=== PATIENT | female | born 1995 | race Caucasian/White ===

== ENCOUNTER → 2019-02-28 13:57 | Outpatient (BNVA) | payer SELFPAY | PROVIDERS: Family Provider Registered Nurse; PCP Registered Nurse; Visit Provider Registered Nurse | DX: N92.6 Irregular menstruation, unspecified (principal); R11.2 Nausea with vomiting, unspecified | CPT/HCPCS: 81025 ==

== ENCOUNTER → 2023-03-16 15:45 | Outpatient (BNVA) | payer MEDICAID, SELFPAY | PROVIDERS: Family Provider Registered Nurse; PCP Registered Nurse; Visit Provider Registered Nurse | DX: N92.6 Irregular menstruation, unspecified (principal); R11.2 Nausea with vomiting, unspecified; R11.0 Nausea | CPT/HCPCS: 80053; 85025 ==

== ENCOUNTER → 2024-03-13 13:33 | Outpatient (BNVA) | payer MEDICAID, SELFPAY | PROVIDERS: Family Provider Registered Nurse; PCP Registered Nurse; Visit Provider Registered Nurse | DX: F32.A Depression, unspecified (principal); N39.0 Urinary tract infection, site not specified; Z01.419 Encounter for gynecological examination (general) (routine) without abnormal findings | CPT/HCPCS: 80053; 81000; 84443; 85025; 87070; 87086; 87205; 88175 ==

== ENCOUNTER → 2024-05-15 09:38 | Outpatient (BNVA) | payer MEDICAID, SELFPAY | PROVIDERS: Family Provider Registered Nurse; PCP Registered Nurse; Visit Provider Registered Nurse | DX: Q79.60 Ehlers-Danlos syndrome, unspecified (principal) | CPT/HCPCS: 81000; 84443; 87086 ==